=== PATIENT | male | born 1945 | race Caucasian/White ===

== ENCOUNTER → 2018-08-12 07:01 | Outpatient (CLI) | payer OTHER, SELFPAY ==
[2018-08-12 10:36] LABS: Vitamin D,25 Hydroxy 43.2 ng/mL (29.95-100.01)
[2018-08-12 10:39] LABS: AST(SGOT) 24 U/L (15-37); Alanine Aminotransfer ALT/SGPT 37 U/L (16-61); Albumin, Serum 3.6 g/dL (3.2-5.0); Alkaline Phosphatase 79 U/L (45-117); Bilirubin, Direct 0.19 mg/dL (0.00-0.30); Cholesterol 123 mg/dL (200); Globulin 3.3 g/dL (2.2-4.2); High Density Lipoprotein 38 mg/dL; Protein, Total 6.9 g/dL (6.4-8.2); Thyroid Stim Hormone (TSH) 4.09 uIU/mL (0.358-3.74); Triglycerides 117 mg/dL; Very Low Density Lipoprotein 23 mg/dL (5-40)
== END ==
PROVIDERS: Family Provider Family Medicine; PCP Family Medicine; Referring Provider Family Medicine; Visit Provider Family Medicine
DX: E55.9 Vitamin D deficiency, unspecified (principal); E03.9 Hypothyroidism, unspecified; E78.5 Hyperlipidemia, unspecified; I10 Essential (primary) hypertension
CPT/HCPCS: 36415; 80061; 80076; 82306; 84443

== ENCOUNTER → 2019-02-09 | Outpatient (CLI) | payer OTHER, SELFPAY ==
[2019-02-09 10:39] LABS: AST(SGOT) 31 U/L (15-37); Alanine Aminotransfer ALT/SGPT 35 U/L (16-61); Albumin, Serum 3.6 g/dL (3.2-5.0); Alkaline Phosphatase 72 U/L (45-117); Bilirubin, Direct 0.15 mg/dL (0.00-0.30); Cholesterol 131 mg/dL (200); High Density Lipoprotein 42 mg/dL; Protein, Total 6.6 g/dL (6.4-8.2); Thyroid Stim Hormone (TSH) 1.28 uIU/mL (0.358-3.74); Triglycerides 98 mg/dL; Very Low Density Lipoprotein 20 mg/dL (5-40)
[2019-02-09 14:16] LABS: Vitamin D,25 Hydroxy 32.1 ng/mL (29.95-100.01)
== END | disposition home or self-care (01) ==
LOC: MTLAB 07:35
PROVIDERS: Family Provider Family Medicine; PCP Family Medicine; Referring Provider Family Medicine; Visit Provider Family Medicine
DX: E55.9 Vitamin D deficiency, unspecified (principal); E03.9 Hypothyroidism, unspecified; E78.5 Hyperlipidemia, unspecified; I10 Essential (primary) hypertension
CPT/HCPCS: 36415; 80061; 80076; 82306; 84443

== ENCOUNTER → 2020-04-18 07:02 | Outpatient (CLI) | payer OTHER, SELFPAY ==
[2020-04-18 10:16] LABS: Vitamin D,25 Hydroxy 53.4 ng/mL
[2020-04-18 10:25] LABS: ALB/GLOB Ratio 1.2 RATIO (0.9-2.4); AST(SGOT) 30 U/L (15-37); Alanine Aminotransfer ALT/SGPT 40 U/L (16-61); Albumin, Serum 3.7 g/dL (3.2-5.0); Alkaline Phosphatase 79 U/L (45-117); Anion Gap 3 (5-15); BUN 19 mg/dL (7-18); BUN/Creat Ratio 22.6 RATIO (10-20); Calcium,Total 8.2 mg/dL (8.5-10.1); Chloride 108 mmol/L (98-107); Cholesterol 139 mg/dL (200); Creatinine, Serum 0.84 mg/dL (0.70-1.30); EST Glomerular Filtration Rate 95 mL/min (>60); Est Glom Filt Rate - Afr Amer 115 mL/min (>60); Globulin 3.2 g/dL (2.2-4.2); Glucose 89 mg/dL (74-106); High Density Lipoprotein 47 mg/dL; PSA,Total - Annual Screen 1.94 ng/mL (0.00-4.00); Potassium 4.2 mmol/L (3.5-5.1); Protein, Total 6.9 g/dL (6.4-8.2); Sodium Level 140 mmol/L (136-145); Thyroid Stim Hormone (TSH) 2.05 uIU/mL (0.358-3.74); Triglycerides 77 mg/dL; Very Low Density Lipoprotein 15 mg/dL (5-40)
== END ==
PROVIDERS: PCP Family Medicine; Referring Provider Family Medicine; Visit Provider Family Medicine
DX: E78.5 Hyperlipidemia, unspecified (principal); I10 Essential (primary) hypertension; E55.9 Vitamin D deficiency, unspecified; E03.9 Hypothyroidism, unspecified; Z12.5 Encounter for screening for malignant neoplasm of prostate
CPT/HCPCS: 36415; 80053; 80061; 82306; 84153; 84443; G0103

== ENCOUNTER 2020-08-22 09:30 | Outpatient (RCR) | payer OTHER, SELFPAY ==
--- NOTE | 2020-08-08 11:06 | HP.PTEVAL_ITS ---
Patient's Visit Information CASSIUS PARTIDA is a 75 year old M referred to Physical Therapy by Dr. Owen Guy MD with a diagnosis of Right Hip Pain. Date of Evaluation: 08/08/20 Physical Therapist: Cyn Kim DPT - Visit Plan Frequency: 2x /Week Duration: 4 Weeks Plan: Ultrasound and Dry needling with possible addition of core s/s exercises - Subjective Right hip pain- started this summer when he stepped out of his truck- he had a cortisone injection about 4-6 weeks ago and it helped but the effects are gone at this point. He has been doing PT 2-3 months at [facility] and he is now doing a home exercise program. He has good days and bad days. He continues his normal routine so nothing changes the pain. Pain is located along the lateral aspect of the hip and radiates to the ankle with pain in the adductors and into the groin. Has had x-rays on his hip which showed a bone spur- he had back surgery 12-14 years ago fusion due to spinal stenosis- Dr. Sun out of [place] at [facility]. Has not had any falls but does feel like the leg will give out on him. He can only do about 3 steps then he has to do them one at a time. Describes the pain as contantly dull and achy with a certain step its gives a sharp/shooting hard pain and it takes 3 days before he can get his leg back under him. Agg: twisting, walking distances with inclines/declines Worst: 9/10 Eases: Aleve and Tylenol Eases: laying down on his back with his legs elevated Best: 10. PMHx: thyroid, HTN Meds: lysinopril, alloperinol, simvistatin, levothyroxin, Asprin - Objective Posture: FH, RS, increased kyphosis- can correct but does not maintain. Gait: antalgic and slow pilar- decreased stance on right LE. HR/TR: able. SLS: weight shift but unable to SLS. ROM: Hip Flexion: 90 degrees, Abd: 50 degrees, IR/ER;neutral, Knee: WFL. Strength: Ankle: 5/5, Knee: 4+/5, Hip: 4-/5 Core: fair minus. Palpatoin: tender along greater troch. Special Test: DARRICK: positive, Scour: positive - Goals Goal 1:: Patient will be I with HEP and progression Goal Time Frame: 4-6 Weeks Goal 2:: Patient will ambulate >300 feet with a normalized gait pattern Goal Time Frame: 4-6 Weeks Goal 3:: Patient will report on pain for 1 week Goal Time Frame: 4-6 Weeks - Rehabilitation Potential Physical Therapy Diagnosis: Patient presents with hypomobility- he has decreased painfree ROM, strength, flex and muscular endurance leading to abnormal gait and increased pain with ADL's. Rehabilitation Potential: Fair - Anticipated Interventions Patient/Client Instruction: Educate patient on: Benefits of Fitness Program Therapeutic Exercise to Include: Strength training, Endurance training, Balance training, Coordination, Agility training, Body mechanics, Postural training, Flexibilty training, Gait and locomotor training, Neuromotor development, Passive ROM, Active ROM, Dynamic Lumbar Stabilization, Scapular Strength/Stabilization For the Purpose of:: To improve muscle performance and motor function Manual Therapy Techniques to Include: Functional dry needling, Soft tissue mobil ization TENS: Yes Cryotherapy (ice pack, ice massage): Yes Thermo therapy (hot pack): Yes Ultrasound (thermal/non thermal): Yes Thank you for the opportunity to evaluate your patient. For Medicare and Medicare HMO plans, please review the plan of care and approve it. It will need to be FAXED BACK to us at [phone] for Medicare purposes. For Medicare only, by signing this I certify the plan of care. Please let me know if there are questions or concerns regarding this plan of care. Physician Signature: Date:
--- NOTE | 2020-08-22 09:57 | HP.PTDCSUM ---
It has been my pleasure to treat CASSIUS LOPEZ [facility] referred by Dr. Owen Guy MD, with the diagnosis of Right Hip Pain for a total of 5 visit(s). Discharge Date: Please see the following information for a summary of their discharge status. Subjective: Patient reports he is walking better- he feels the ultrasound does the most for it. He tried to walk upstairs and only made 4 steps then he had to stop. The pain is somewhat less. This helps but the problem is not fixed. MD reports that he would give him another cortisone injection. R lateral hip Pain Intensity (Out of 10): 2 % Improvement: 50 Objective/Function: Posture: FH, RS, increased kyphosis- can correct but does not maintain. Gait: antalgic and slow pilar- decreased stance on right LE. HR/TR: able. SLS: weight shift but unable to SLS more than 3 seconds. ROM: Hip Flexion: 90 degrees, Abd: 50 degrees, IR/ER;neutral, Knee: WFL. Strength: Ankle: 5/5, Knee: 4+/5, Hip: 4-/5 Core: fair minus- Significant soreness and tears when testing hip flexion. Palpatoin: tender along greater troch. Special Test: DARRICK: positive, Scour: positive Goal 1:: Patient will be I with HEP and progression Goal Progress: Progressing Goal 2:: Patient will ambulate >300 feet with a normalized gait pattern Goal Progress: Progressing Goal 3:: Patient will report on pain for 1 week Goal Progress: Progressing Plan: Discharge to indep home exercise program and return to MD for further evaluation If there are questions or concerns regarding this patient's physical therapy, please feel free to call me at [phone]. Thank you for the referral of this patient. Sincerely, Cyn Kim DPT
== END 2020-08-22 10:12 | disposition home or self-care (01) ==
LOC: PT 09:30
PROVIDERS: PCP Family Medicine; Referring Provider Orthopaedic Surgery; Visit Provider Orthopaedic Surgery
DX: M70.61 Trochanteric bursitis, right hip (principal)
CPT/HCPCS: 97035; 97110; 97161; 97164

== ENCOUNTER → 2020-10-08 07:08 | Outpatient (CLI) | payer OTHER, SELFPAY ==
[2020-09-02 09:45] VITALS: BMI 22.9
[2020-10-08 09:59] LABS: Hematocrit 46.6 % (40-54); Hemoglobin 15.1 g/dL (13.0-16.5); Mean Corp Hgb Conc 32.4 g/dL (32-36); Mean Corpuscular Hgb 33.6 pg (27.0-32.0); Mean Corpuscular Volume 103.8 fL (80-94); Mean Platelet Vol. 10.3 fl (6.2-12.0); Platelet Count 307 K/mm3 (150-450); RBC Distribution Width CV 11.9 % (11.6-14.6); RBC Distribution Width SD 45.4 fl (35.1-43.9); Red Blood Count 4.49 M/mm3 (4.6-6.2)
[2020-10-08 10:13] LABS: Vitamin D,25 Hydroxy 38.7 ng/mL
[2020-10-08 10:19] LABS: ALB/GLOB Ratio 1.2 RATIO (0.9-2.4); AST(SGOT) 20 U/L (15-37); Alanine Aminotransfer ALT/SGPT 34 U/L (16-61); Albumin, Serum 3.8 g/dL (3.2-5.0); Alkaline Phosphatase 83 U/L (45-117); Anion Gap 5 (5-15); BUN 15 mg/dL (7-18); BUN/Creat Ratio 17.5 RATIO (10-20); Calcium,Total 8.7 mg/dL (8.5-10.1); Chloride 105 mmol/L (98-107); Cholesterol 165 mg/dL (200); Creatinine, Serum 0.86 mg/dL (0.70-1.30); EST Glomerular Filtration Rate 93 mL/min (>60); Est Glom Filt Rate - Afr Amer 112 mL/min (>60); Globulin 3.2 g/dL (2.2-4.2); Glucose 81 mg/dL (74-106); High Density Lipoprotein 50 mg/dL; Potassium 3.7 mmol/L (3.5-5.1); Sodium Level 140 mmol/L (136-145); Thyroid Stim Hormone (TSH) 3.25 uIU/mL (0.358-3.74); Triglycerides 111 mg/dL; Very Low Density Lipoprotein 22 mg/dL (5-40)
== END ==
PROVIDERS: PCP Family Medicine; Referring Provider Family Medicine; Visit Provider Family Medicine
DX: Z00.00 Encounter for general adult medical examination without abnormal findings (principal); E78.5 Hyperlipidemia, unspecified; I10 Essential (primary) hypertension; E03.9 Hypothyroidism, unspecified; E55.9 Vitamin D deficiency, unspecified; Z12.5 Encounter for screening for malignant neoplasm of prostate
CPT/HCPCS: 36415; 80053; 80061; 82306; 84443; 85027

== ENCOUNTER 2021-11-06 07:08 | Outpatient (CLI) | payer OTHER, SELFPAY ==
[2021-11-06 10:21] LABS: Vitamin D,25 Hydroxy 42.8 ng/mL
[2021-11-06 11:04] LABS: ALB/GLOB Ratio 1.1 RATIO (0.9-2.4); AST(SGOT) 29 U/L (15-37); Alanine Aminotransfer ALT/SGPT 39 U/L (16-61); Albumin, Serum 3.9 g/dL (3.2-5.0); Alkaline Phosphatase 91 U/L (45-117); Anion Gap 7 (5-15); BUN 17 mg/dL (7-18); BUN/Creat Ratio 16.3 RATIO (10-20); Calcium,Total 8.7 mg/dL (8.5-10.1); Chloride 104 mmol/L (98-107); Cholesterol 136 mg/dL (200); Creatinine, Serum 1.04 mg/dL (0.70-1.30); EST Glomerular Filtration Rate 74 mL/min (>60); Est Glom Filt Rate - Afr Amer 90 mL/min (>60); Globulin 3.4 g/dL (2.2-4.2); Glucose 76 mg/dL (74-106); High Density Lipoprotein 45 mg/dL; PSA,Total - Annual Screen 2.77 ng/mL (0.00-4.00); Potassium 3.9 mmol/L (3.5-5.1); Protein, Total 7.3 g/dL (6.4-8.2); Sodium Level 136 mmol/L (136-145); Thyroid Stim Hormone (TSH) 0.96 uIU/mL (0.358-3.74); Triglycerides 64 mg/dL; Uric Acid 3.8 mg/dL (3.5-7.2); Very Low Density Lipoprotein 13 mg/dL (5-40)
== END 2021-11-06 23:59 | disposition short-term general hospital (02) ==
PROVIDERS: PCP Family Medicine; Referring Provider Family Medicine; Visit Provider Family Medicine
DX: Z00.00 Encounter for general adult medical examination without abnormal findings (principal); Z12.5 Encounter for screening for malignant neoplasm of prostate; I10 Essential (primary) hypertension; E03.9 Hypothyroidism, unspecified; E78.5 Hyperlipidemia, unspecified; E55.9 Vitamin D deficiency, unspecified; M10.9 Gout, unspecified
CPT/HCPCS: 36415; 80053; 80061; 82306; 84153; 84443; 84550; G0103

== ENCOUNTER 2021-12-12 22:38 | Observation (INO) | payer OTHER, SELFPAY ==
[2021-12-12 22:39] VITALS: PULSE 15; RESP 15; TEMP 36.2; O2SAT 100; BMI 24.5
[2021-12-12 22:43] VITALS: BP 149/83
--- NOTE | 2021-12-12 23:02 | EKG12_ITS ---
Test Reason : DYSRHYTHMIA Blood Pressure : / mmHG Vent. Rate : 068 BPM Atrial Rate : 068 BPM P-R Int : 188 ms QRS Dur : 088 ms QT Int : 412 ms P-R-T Axes : 049 060 053 degrees QTc Int : 438 ms Normal sinus rhythm Nonspecific ST abnormality Abnormal ECG Confirmed by ROSALIE BURLESON, JAIRON ([id number]), editorial manager ASHLEY BENNETT ([id number]) on 12/15/2021 10:59:09 AM Referred By: BB Confirmed By:JAIRON WIGGINS MD
--- NOTE | 2021-12-12 23:06 | EX.ED.DYSGE1 ---
HPI History of Present Illness Chief Complaint: Syncope Informant: patient, spouse/S.O. and EMS Onset/Context/Timing Onset: Today Narrative Narrative: For the past 3 days or so patient has been having some pain in the right side of his neck that hurts worse with turning his head to the right, better when he massages the muscle and when he remains still, so he went to get a heating pad and before using it, he was walking in his bathroom and suddenly felt a little funny, he thinks maybe lightheaded, and the next thing he remembers he was waking up from on the floor with his over him. She also to the bed. He laid down, sleeping some, for about the next 5 hours or so. She got him up later gradually, they went to the kitchen and sat down and he had a little something to eat and then upon getting up he felt lightheaded and passed out again, he was amnestic to that event as well and woke up on the floor again with his over him. He felt nauseated and sweaty after both of these episodes, worse after the first 1. He states he did not feel dyspnea, but felt like it was hard to take a deep breath at the time. He did not have any chest discomfort. No recent leg pain or swelling. No recent long travel, immobilization, hospitalization, or surgery. No history of DVT or PE. He does have a history of coronary artery disease with a 65% lesion in one of his coronaries the last time he had a heart cath which was 3 years ago. Never had angioplasty or stent placed. He has no reason to be dehydrated today. He does not drink a lot of fluids, but he had typical amount for him which is maybe 18-24 ounces of water today. states he is also been taking in protein shakes because of unintentional weight loss even though he is eating. EMS provided an EKG which had a lot of artifact but appeared to be sinus rhythm, they give him some fluids and he was stable. [facility] Medical History (Updated 12/12/21 @ 23:[address] Obed Guerra MD) Arthritis CAD (coronary artery disease) Cervical spinal stenosis Gout Hemorrhoids Hyperlipidemia Hypertension Hypothyroid Home Medications allopurinol 300 mg tablet 300 mg PO DAILY tab 09/02/20 [History Last Taken Unknown] aspirin 81 mg tablet,delayed release 81 mg PO DAILY 09/02/20 [History Last Taken Unknown] levothyroxine 112 mcg tablet 112 mcg PO DAILY tab 09/02/20 [History Last Taken Unknown] lisinopril 20 mg tablet 20 mg PO DAILY tab 09/02/20 [History Last Taken Unknown] multivitamin 1 tab PO DAILY 09/02/20 [History Last Taken Unknown] omega-3 fatty acids 1,000 mg capsule 1,000 mg PO DAILY 09/02/20 [History Last Taken Unknown] simvastatin 40 mg tablet 40 mg PO DAILY 09/02/20 [History Last Taken Unknown] vitamin B complex 1 tab PO DAILY 09/02/20 [History Last Taken Unknown] vitamin E 200 unit capsule 200 unit PO DAILY 09/02/20 [History Last Taken Unknown] citalopram 20 mg PO DAILY 12/12/21 [History Last Taken Unknown] sildenafil [Viagra] 100 mg PO DAILY PRN 12/12/21 [History Last Taken Unknown] Allergy/AdvReac Type Severity Reaction Status Date / Time cyclobenzaprine Allergy Low blood Verified 12/12/21 22:42 pressure amoxicillin AdvReac Diarrhea Verified 12/12/21 22:42 Family History Mother Heart disease Hypertension Father Alzheimer disease Surgical History History of back surgery Hx of colonoscopy Hx of subdural hematoma Hx of tonsillectomy Social History Smoking Status: Never smoker second hand exposure: No alcohol intake: current alcohol intake frequency: a few times a month Alcohol type: beer substance use type: does not use caffeine: Yes what type of physical activity do you participate in: walking, bicycling and aerobics frequency: 3-4 times per week ROS ROS ED Constitutional Constitutional ED: Denies chills or fever(s) Eyes Eyes: Denies change in vision or diplopia ENT ENT ED: Denies rhinorrhea or sore throat Cardiovascular Cardiovascular: Denies chest pain or palpitations Respiratory/Chest Respiratory/Chest: Denies cough or dyspnea Gastrointestinal Gastrointestinal: Reports nausea; Denies abdominal pain, diarrhea or vomiting Genitourinary Genitourinary ED: Denies dysuria or hematuria Musculoskeletal Musculoskeletal: Denies back pain or neck pain Integumentary Denies abscess or rash Neurologic Neurologic: Denies headache(s), paresthesias or weakness Psychiatric Psychiatric: Denies anxiety or suicidal thoughts EXAM Physical Exam Const Vital Signs: 12/12/21 22:39 12/12/21 22:43 12/12/21 23:07 Temperature 97.1 F L Temperature Source Temporal Pulse Rate 15 L Respiratory Rate 15 Blood Pressure 149/83 H Blood Pressure Mean 105 Pulse Ox 100 Oxygen Delivery Method Room Air Room Air 12/12/21 23:39 Temperature Temperature Source Pulse Rate 61 Respiratory Rate 21 H Blood Pressure 128/71 H Blood Pressure Mean 90 Pulse Ox 100 Oxygen Delivery Method Room Air Positive well nourished and well developed General Appearance ED: well developed and NAD HEENT Reports moist mucous membranes normocephalic and atraumatic Eyes PERRL and EOMs intact bilaterally Neck full ROM and supple Resp normal respiratory effort and clear to auscultation bilaterally Cardio regular rate, regular rhythm, no murmurs and no JVD Cardio Narrative: Faint heart sounds GI non-tender and non-distended Auscultation: normoactive bowel sounds Palpation: soft; Negative for pulsatile mass Back/Spine no CVA tenderness General Back: other FROM Extremity normal to inspection and no calf tenderness General Extremety ED: Negative for edema, pulses abnormal or tenderness General Extremity: Negative for edema or pulses abnormal Neuro oriented x3, CN's II-XII intact bilaterally and no sensory deficits noted Sensorium / Orientation: awake and alert Motor Exam: strength 5/5 throughout Skin no rashes or lesions noted and no wounds MDM MDM MDM Narrative Medical decision making narrative: His EKG does show some very mild ST depressions in the septal lateral precordial leads. No ST elevation or STEMI, and no dysrhythmias seen on his EKG or on the monitor during his ED observation period. The rest of the work-up is negative including chest x-ray, labs. His D-dimer is technically elevated at 0.60 but when corrected for his age is within normal limits to rule out acute pulmonary embolus to cause these events tonight. Given his age and history of CAD, I think inpatient observation on telemetry is warranted. Lab Data Attestation: I reviewed the patient's lab results. Labs: Laboratory Results - last 24 hr 12/12/21 12/12/21 12/12/21 22:17 22:17 22:17 WBC 9.9 RBC 4.01 L Hgb 13.9 Hct 40.1 MCV 100.0 H MCH 34.7 H MCHC 34.7 RDW Std Deviation 43.0 RDW Coeff of Lexy 11.7 Plt Count 271 MPV 10.4 Immature Gran % (Auto) 0.600 Neut % (Auto) 68.3 Lymph % (Auto) 19.7 [place] % (Auto) 10.6 H Eos % (Auto) 0.4 Baso % (Auto) 0.4 Absolute Neuts (auto) 6.8 Absolute Lymphs (auto) 1.96 Nucleated RBC % 0 D-Dimer Quant (PE/DVT) 0.62 H* Sodium 136 Potassium 3.7 Chloride 106 Carbon Dioxide 26.0 Anion Gap 4 L BUN 17 Creatinine 0.92 Estim Creat Clear Calc 78.40 Est GFR (MDRD) Af Amer 104 Est GFR (MDRD) Non-Af 86 BUN/Creatinine Ratio 18.6 Glucose 140 H Calcium 9.4 Troponin I High Sens 8 Radiography Diagnostic Testing: Clinical Impression(s) from Imaging Studies Chest X-Ray 12/12/21 23:12 IMPRESSION: No pneumonia or other acute disease. Electronically Signed: Armando Bennett MD at 23:35 EST , EKG Initial EKG: Attestation: I personally reviewed and interpreted this EKG as follows: Interpretation: Sinus Rhythm, No Acute Injury Pattern and S-T Depression (Less than 1 mm in septolateral leads. No ST elevation.) Discharge Plan Dx/Rx/DC Orders Clinical Impression: Syncope, Acute electrocardiogram changes Disposition Disposition: Acute Care Hospital [facility]
--- NOTE | 2021-12-12 23:12 | RAD_ITS ---
EXAM: XR CHEST, 1 VIEW CLINICAL INDICATION: sob TECHNIQUE: Frontal view of the chest. This report was created using [employer] report generation technology. COMPARISON: None. FINDINGS: LUNGS AND PLEURAL SPACES: Unremarkable. No consolidation or edema. No pneumothorax. No effusion. HEART: Unremarkable. Cardiac silhouette not enlarged. MEDIASTINUM: Central airways and mediastinal contour are unremarkable. BONES/JOINTS: Degenerative changes of the acromioclavicular joints. Degenerative changes the glenohumeral joints. SOFT TISSUES: Unremarkable. VASCULATURE: Atherosclerotic calcifications of the nonenlarged thoracic aortic arch. RAD/Chest 1 View (Portable) IMPRESSION: No pneumonia or other acute disease. Electronically Signed: Armando Bennett MD at 23:35 EST ,
[2021-12-12] MEDS: Aspirin 81 MG TAB.CHEW 162 MG PO (23:19)
[2021-12-12] MEDS: 0.9% Normal Saline 1,000 ML 100 ML IV (23:19)
[2021-12-12 23:20] LABS: Absolute Lymphocyte Count 1.96 X10^3/uL (0.83-4.51); Absolute Neutrophil Count 6.8 X10^3/uL (2.0-7.7); Basophil# 0.04 X10^3/uL; Basophil% 0.4 % (0-1); Eosinophil# 0.04 X10^3/uL; Eosinophils% 0.4 % (0-5); Hematocrit 40.1 % (40-54); Hemoglobin 13.9 g/dL (13.0-16.5); Lymphocyte # 1.96 X10^3/ul (0.83-4.51); Lymphocyte % 19.7 % (19-41); Mean Corp Hgb Conc 34.7 g/dL (32-36); Mean Corpuscular Hgb 34.7 pg (27.0-32.0); Mean Platelet Vol. 10.4 fl (6.2-12.0); Monocyte# 1.05 X10^3/uL; Monocyte% 10.6 % (0-10); NRBC Flagged by Analyzer 0 % (0-5); Neutrophil # 6.79 X10^3/uL (2.7-7.7); Neutrophil % 68.3 % (47-70); Platelet Count 271 K/mm3 (150-450); RBC Distribution Width CV 11.7 % (11.6-14.6); Red Blood Count 4.01 M/mm3 (4.6-6.2); White Blood Count 9.9 K/mm3 (4.4-11.0)
[2021-12-12 23:38] LABS: Anion Gap 4 (5-15); BUN 17 mg/dL (7-18); BUN/Creat Ratio 18.6 RATIO (10-20); Calcium,Total 9.4 mg/dL (8.5-10.1); Chloride 106 mmol/L (98-107); Creatinine, Serum 0.92 mg/dL (0.70-1.30); D-Dimer Quantitative (DVT/PE) 0.62 FEU/ug/m (0.27-0.49); EST Glomerular Filtration Rate 86 mL/min (>60); Est Glom Filt Rate - Afr Amer 104 mL/min (>60); Glucose 140 mg/dL (74-106); Potassium 3.7 mmol/L (3.5-5.1); Sodium Level 136 mmol/L (136-145); Troponin-I HS 8 pg/mL (3.0-78.0)
[2021-12-12 23:39] VITALS: BP 128/71; PULSE 61; RESP 21; O2SAT 100
[2021-12-13] VITALS (11 sets, daily range): BP systolic 119–138; BP diastolic 61–75; PULSE 56–72; RESP 14–17; TEMP 36.6–37.2; O2SAT 97–100; BMI 22.4
[2021-12-13 00:52] LABS: Troponin-I HS 8 pg/mL (3.0-78.0)
--- NOTE | 2021-12-13 01:08 | HP.PCM.HOS_ITS ---
[facility] - General General Date of Admission: 12/13/21 HPI Narrative CASSIUS PARTIDA, is a 76 M who presents to the hospital with 2 separate episodes of syncope. He said the first 1 occurred when he was on his way to the bathroom, he had been searching for a heating pad because he has had his neck hurting for several days because he thinks he slept on it funny and he was getting dizzy and passed out. His was working from home at the time and heard the thud and arrived within several seconds of the fall and he started coming to, she did not notice any seizure-like activity. Immediately after he woke up he had to go to the bathroom and had a bowel movement he felt diaphoretic and hot at that time. He he then laid down and started feeling chilled and needed several brown blankets to warm up. He fell asleep for a little bit and then woke up and thought about having something to eat so his walked him to the kitchen to grab fruit cup and he ate and then when he was going to get up to go sit on the couch, his was helping him and he passed out again dizzy. At that time she did not notice any seizure-like activity either. He denies any palpitations or chest pain. Denies any recent illness. In the ER work-up is unremarkable, lab work is normal renal function is normal. His D-dimer is 0.62 which is normal for his age and his troponin was unremarkable and EKG was nonischemic. [facility] Medical History (Updated 12/12/21 @ 23:[address] Obed Guerra MD) Arthritis CAD (coronary artery disease) Cervical spinal stenosis Gout Hemorrhoids Hyperlipidemia Hypertension Hypothyroid Home Medications allopurinol 300 mg tablet 300 mg PO DAILY tab 09/02/20 [History Last Taken Unknown] aspirin 81 mg tablet,delayed release 81 mg PO DAILY 09/02/20 [History Last Taken Unknown] levothyroxine 112 mcg tablet 112 mcg PO DAILY tab 09/02/20 [History Last Taken Unknown] lisinopril 20 mg tablet 20 mg PO DAILY tab 09/02/20 [History Last Taken Unknown] multivitamin 1 tab PO DAILY 09/02/20 [History Last Taken Unknown] omega-3 fatty acids 1,000 mg capsule 1,000 mg PO DAILY 09/02/20 [History Last Taken Unknown] simvastatin 40 mg tablet 40 mg PO DAILY 09/02/20 [History Last Taken Unknown] vitamin B complex 1 tab PO DAILY 09/02/20 [History Last Taken Unknown] vitamin E 200 unit capsule 200 unit PO DAILY 09/02/20 [History Last Taken Unknown] citalopram 20 mg PO DAILY 12/12/21 [History Last Taken Unknown] sildenafil [Viagra] 100 mg PO DAILY PRN 12/12/21 [History Last Taken Unknown] Allergy/AdvReac Type Severity Reaction Status Date / Time cyclobenzaprine Allergy Low blood Verified 12/12/21 22:42 pressure amoxicillin AdvReac Diarrhea Verified 12/12/21 22:42 Family History Mother Heart disease Hypertension Father Alzheimer disease Surgical History History of back surgery Hx of colonoscopy Hx of subdural hematoma Hx of tonsillectomy Social History Smoking Status: Never smoker second hand exposure: No alcohol intake: current alcohol intake frequency: a few times a month Alcohol type: beer substance use type: does not use caffeine: Yes what type of physical activity do you participate in: walking, bicycling and aerobics frequency: 3-4 times per week ROS Constitutional Constitutional: Denies chills, fatigue, fever(s) or malaise Eyes Eyes: Denies blurry vision ENT HEENT: Denies headache(s) or nasal discharge Cardiovascular Cardiovascular: Reports dizziness and syncope; Denies chest pain or dyspnea on exertion Respiratory/Chest Respiratory/Chest: Denies cough, shortness of breath at rest or shortness of breath with exertion Gastrointestinal Gastrointestinal: Denies constipation, diarrhea, nausea or vomiting Genitourinary Genitourinary: Denies dysuria Neurologic Neurologic: Denies focal weakness, numbness or tremor(s) Psychiatric Psychiatric: Denies anxiety or depression Vital Signs Vital Signs Vital Signs: 12/12/21 22:39 12/12/21 22:43 12/12/21 23:07 Temperature 97.1 F L Temperature Source Temporal Pulse Rate 15 L Respiratory Rate 15 Blood Pressure 149/83 H Blood Pressure Mean 105 Pulse Ox 100 Oxygen Delivery Method Room Air Room Air 12/12/21 23:39 Temperature Temperature Source Pulse Rate 61 Respiratory Rate 21 H Blood Pressure 128/71 H Blood Pressure Mean 90 Pulse Ox 100 Oxygen Delivery Method Room Air Weight Weight: 186 lb 4.65 oz Body Mass Index (BMI) 24.5 Physical Exam Const alert, oriented x3 and no apparent distress General Appearance: cooperative HEENT normocephalic and moist oral mucous membranes Eyes PERRL, EOMs intact bilaterally and conjunctivae normal Neck supple and no JVD Resp normal respiratory effort, no retractions, no use of accessory muscles and clear to auscultation bilaterally Auscultation: Negative for crackles, rales, rhonchi or wheezes Cardio regular rate, regular rhythm, S1 normal heart sound, S2 normal heart sound and no murmurs GI soft to palpation, non-tender and non-distended; Negative for hepatosplenomegaly Extremity no clubbing, cyanosis or edema Skin no rashes or lesions noted Neuro no focal motor deficits and no sensory deficits noted Psych affect normal Appearance: appropriate Results Lab / Micro Data Result Diagrams: 12/12/21 22:17 12/12/21 22:17 Labs: Laboratory Results - last 24 hr 12/12/21 22:17: WBC 9.9, RBC 4.01 L, Hgb 13.9, Hct 40.1, MCV 100.0 H, MCH 34.7 H , MCHC 34.7, RDW Std Deviation 43.0, RDW Coeff of Lexy 11.7, Plt Count 271, MPV 10.4, Immature Gran % (Auto) 0.600, Neut % (Auto) 68.3, Lymph % (Auto) 19.7, [place] % (Auto) 10.6 H, Eos % (Auto) 0.4, Baso % (Auto) 0.4, Absolute Neuts (auto) 6.8, Absolute Lymphs (auto) 1.96, Nucleated RBC % 0 12/12/21 22:17: D-Dimer Quant (PE/DVT) 0.62 H* 12/12/21 22:17: Sodium 136, Potassium 3.7, Chloride 106, Carbon Dioxide 26.0, Anion Gap 4 L, BUN 17, Creatinine 0.92, Estim Creat Clear Calc 78.40, Est GFR (MDRD) Af Amer 104, Est GFR (MDRD) Non-Af 86, BUN/Creatinine Ratio 18.6, Glucose 140 H, Calcium 9.4, Troponin I High Sens 8 12/13/21 00:20: Troponin I High Sens 8 Radiology Impression Chest X-Ray 12/12/21 23:12 IMPRESSION: No pneumonia or other acute disease. Electronically Signed: Armando Bennett MD at 23:35 EST Reading Location ID and State: [id number] Tel , Service support , Assessment & Plan Assessment/Plan (1) Syncope: PLAN: 1. Syncope/HTN/HLD/CAD ?This does not appear to be associated with any seizure-like activity, denies any chest pain or palpitations and telemetry has been normal so far plan ?we will obtain an echo and continue on telemetry monitoring ?Continue with IV fluid ?We will continue with his home blood pressure medication ?Obtain orthostatic vital signs in the morning, this is likely vasovagal 2. Hypothyroidism ?Stable ?Continue with Synthroid 3. Anxiety/depression ?Stable ?Continue citalopram DVT: Ambulation Charges/Coding Visit Charges OBSV E&M: 09662 Initial observation care L2
--- NOTE | 2021-12-13 01:21 | ECHOD_ITS ---
Reason For Study: Syncope/Near Syncope Procedure This was a 2D Doppler, Color Flow transthoracic echocardiogram. Exam performed portable in patient room. Left Ventricle Normal LV size. Left ventricular systolic function is normal. The estimated ejection fraction is 55 %. Normal diastology for age. No regional wall motion abnormalities noted. Right Ventricle Normal RV size. Normal systolic function. Atria Normal left atrium. Normal right atrium. Mitral Valve Normal mitral valve. Tricuspid Valve Normal tricuspid valve. Mild tricuspid valve insufficiency. Pulmonary artery systolic pressure is 33 mmHg. Aortic Valve Normal aortic valve. Trisinus/trileaflet aortic valve. Pulmonic Valve Normal pulmonic valve. Great Vessels Normal aortic root. The pulmonary artery is normal size. Normal inferior vena cava. Pericardium/Pleural No pericardial effusion. MMode/2D Measurements & Calculations LVIDd: 4.9 cm IVSd: 0.81 cm Ao root diam: 3.4 cm LVIDs: 2.7 cm LVPWd: 0.90 cm RVDd: 4.4 cm FS: 44.1 % LAV(MOD-bp): 45.3 ml LVAd ap4: 25.5 cm2 SV(MOD-sp4): 43.1 ml LAV(MOD-bp) Indexed: 21.7 ml/m2 LVLd ap4: 7.6 cm LAV(MOD-sp2): 50.2 ml EDV(MOD-sp4): 69.8 ml LAV(MOD-sp4): 36.4 ml EDV(sp4-el): 72.2 ml LVAs ap4: 14.0 cm2 LVLs ap4: 6.6 cm ESV(MOD-sp4): 26.7 ml ESV(sp4-el): 25.2 ml EF(MOD-sp4): 61.8 % EF(sp4-el): 65.1 % SV(sp4-el): 47.0 ml LA A4 area: 15.2 cm2 LA dimension(2D): 4.0 cm RA A4 area: 19.2 cm2 Doppler Measurements & Calculations MV E max margarito: 72.1 cm/sec Lat Peak E' Margarito: 14.3 cm/sec Med Peak E' Margarito: 9.0 cm/sec MV A max margarito: 58.1 cm/sec E/E' lat: 5.0 E/E' med: 8.0 MV E/A: 1.2 Ao V2 max: 122.9 cm/sec LV V1 max: 111.4 cm/sec PA V2 max: 76.0 cm/sec Ao max P.0 mmHg LV V1 max P.0 mmHg Ao V2 mean: 86.0 cm/sec Ao mean P.3 mmHg Ao V2 VTI: 26.6 cm TR max margarito: 266.4 cm/sec TR max P.4 mmHg ECHO/Echo Complete Interpretation Summary Normal LV size. Left ventricular systolic function is normal. The estimated ejection fraction is 55 %. Normal diastology for age. Pulmonary artery systolic pressure is 33 mmHg. Structurally normal valves. Ordering Physician: George Sanchez Referring Physician: Clovis Esteban Performed By: Tiara Ortiz, SHERI, RVT
[2021-12-13] MEDS: 0.9% Normal Saline 1,000 ML 100 ML IV ×2 (01:25→08:08)
[2021-12-13] MEDS: Levothyroxine 112 MCG Tablet PO (06:02)
[2021-12-13 06:43] LABS: Absolute Lymphocyte Count 1.21 X10^3/uL (0.83-4.51); Absolute Neutrophil Count 4.9 X10^3/uL (2.0-7.7); Basophil# 0.03 X10^3/uL; Basophil% 0.4 % (0-1); Eosinophil# 0.05 X10^3/uL; Eosinophils% 0.7 % (0-5); Hematocrit 37.2 % (40-54); Hemoglobin 12.8 g/dL (13.0-16.5); Lymphocyte # 1.21 X10^3/ul (0.83-4.51); Mean Corp Hgb Conc 34.4 g/dL (32-36); Mean Corpuscular Hgb 34.5 pg (27.0-32.0); Mean Corpuscular Volume 100.3 fL (80-94); Mean Platelet Vol. 9.8 fl (6.2-12.0); Monocyte# 0.91 X10^3/uL; Monocyte% 12.8 % (0-10); NRBC Flagged by Analyzer 0 % (0-5); Neutrophil # 4.89 X10^3/uL (2.7-7.7); Neutrophil % 68.8 % (47-70); Platelet Count 238 K/mm3 (150-450); RBC Distribution Width CV 11.8 % (11.6-14.6); RBC Distribution Width SD 44.2 fl (35.1-43.9); Red Blood Count 3.71 M/mm3 (4.6-6.2); White Blood Count 7.1 K/mm3 (4.4-11.0)
[2021-12-13 07:16] LABS: Anion Gap 3 (5-15); BUN 12 mg/dL (7-18); BUN/Creat Ratio 17.5 RATIO (10-20); Calcium,Total 8.4 mg/dL (8.5-10.1); Chloride 108 mmol/L (98-107); Creatinine, Serum 0.69 mg/dL (0.70-1.30); EST Glomerular Filtration Rate 120 mL/min (>60); Est Glom Filt Rate - Afr Amer 145 mL/min (>60); Glucose 112 mg/dL (74-106); Potassium 3.9 mmol/L (3.5-5.1); Sodium Level 139 mmol/L (136-145)
[2021-12-13 07:19] LABS: Troponin-I HS 9 pg/mL (3.0-78.0)
[2021-12-13] MEDS: Lisinopril 20 MG Tablet PO (08:09)
[2021-12-13] MEDS: Allopurinol 300 MG Tablet PO (08:09)
[2021-12-13] MEDS: Aspirin E.C. 81 MG Tablet PO (08:09)
--- NOTE | 2021-12-13 11:51 | CASEMGMT ---
BENNIE ARELLANO in to discuss HERNANDEZ form with patient. RN EILEEN explained HERNANDEZ form, patient voiced understanding. Pt signed form and filed in chart. Pt provided with a copy of signed HERNANDEZ form. Patient at bedside. Discussed pt two recent falls. Pt states this is not due to weakness. Patient denies needs for any needs homegoing at this time. Patient had no further questions or concerns at this time.
--- NOTE | 2021-12-13 16:27 | PCM.DC ---
Discharge Instructions Diet Discharge Diet: No restrictions Activity Discharge Activity: Return to Normal Activity and [address] (with supervision only until you see your doctor) Follow Up Care Test Results: Test results from this visit will be discussed in further detail at your follow-up appointment, if applicable. Discharge Plan Admission Admit Date/Time: 12/13/21 00:34 Primary Reason for Your Visit: Vaso-vegal syncope Attending Provider: Brendan Lopez Primary Care Provider: Clovis Esteban Instructions Additional Instructions / Restrictions: You may want to consider a 30 day Holter monitor for further workup Discharge Orders/Prescriptions Prescriptions: Continued allopurinol 300 mg tablet 300 mg PO DAILY RF: 0 lisinopril 20 mg tablet 20 mg PO DAILY RF: 0 levothyroxine 112 mcg tablet 112 mcg PO DAILY RF: 0 simvastatin 40 mg tablet 40 mg PO DAILY RF: 0 aspirin [Adult Low Dose Aspirin] 81 mg tablet,delayed release (DR/EC) 81 mg PO DAILY RF: 0 omega-3 fatty acids [Fish Oil Concentrate] 1,000 mg capsule 1,000 mg PO DAILY RF: 0 multivitamin Tablet 1 tab PO DAILY RF: 0 vitamin B complex [B Complex-Vitamin B12] Tablet 1 tab PO DAILY RF: 0 vitamin E 200 unit capsule 200 unit PO DAILY RF: 0 sildenafil [Viagra] 100 mg Tablet 100 mg PO DAILY PRN (Reason: Erectile Dysfunction) RF: 0 citalopram 20 mg Tablet 20 mg PO DAILY RF: 0 Referrals / Follow Up: Clovis Esteban MD [Primary Care Provider] - Within 2 Weeks Disposition Disposition (needs filled in before D/C Order can be placed): Home, Self Care
--- NOTE | 2021-12-13 16:31 | PCM.DC.SUM ---
Providers Date of Admission: 12/13/21 Date of Discharge: 12/13/21 Primary Care Physician: Dr. Clovis Esteban MD Reason For Visit: SYNCOPE Diagnosis Discharge Diagnosis (1) Syncope: Status: Acute Code(s): R55 - Syncope and collapse Plan: 1. 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 #4 hyperlipidemia #5 hypothyroidism Medications at Discharge Home Medications allopurinol 300 mg tablet 300 mg PO DAILY tab 09/02/20 aspirin 81 mg tablet,delayed release 81 mg PO DAILY 09/02/20 levothyroxine 112 mcg tablet 112 mcg PO DAILY tab 09/02/20 lisinopril 20 mg tablet 20 mg PO DAILY tab 09/02/20 multivitamin 1 tab PO DAILY 09/02/20 omega-3 fatty acids 1,000 mg capsule 1,000 mg PO DAILY 09/02/20 simvastatin 40 mg tablet 40 mg PO DAILY 09/02/20 vitamin B complex 1 tab PO DAILY 09/02/20 vitamin E 200 unit capsule 200 unit PO DAILY 09/02/20 citalopram 20 mg PO DAILY 12/12/21 sildenafil [Viagra] 100 mg PO DAILY PRN 12/12/21 Hospital Course Operations None Procedures 2-D Echocardiogram Summary of Care Provided Minutes Spent on Discharge: 32 Hospital Course: This 76-year-old white male was seen in the emergency room at [facility] after suffering 2 brief episodes of syncope at home, these episodes were a couple of hours apart, and one episode he stood up and was walking and got very lightheaded and collapsed, he denied any chest pain or shortness of breath, he then went to bed for a time and got up and with his 's help was getting ready to sit down in a chair and the patient stated he passed out for a brief period of time-probably less than a minute. Patient was brought in for evaluation in the emergency room, studies done in the emergency room were unremarkable. Patient was placed in observation status on PCU, he underwent an echocardiogram which was unremarkable. Patient was monitored on telemetry-the telemetry did not show any abnormal arrhythmias. I talked at length with the patient and his , the patient requested discharge to home with follow-up by his PCP. I recommended that the patient consider a 30-day Holter monitor and perhaps a stress test as an outpatient at the discretion of his PCP. On 12/13/2021, patient was seen and examined: On examination he appeared in good health and spirits. Vital signs as documented. Skin warm and dry and without overt rashes. Neck without JVD, neck was supple, trachea midline, thyroid was normal. Lungs clear bilaterally, normal air movement was noted. Heart exam notable for regular rhythm, normal sounds and absence of murmurs, rubs or gallops. Abdomen unremarkable and without evidence of organomegaly, masses, or abdominal aortic enlargement. Bowel sounds are present, abdomen is not distended. Extremities nonedematous, no cyanosis was noted, no clubbing was noted. Neuro: Cranial nerves II through XII are grossly intact, no focal motor deficits were noted, sensation to light touch and pinprick intact, motor exam 5/5 throughout. Psych: Patient is alert and oriented x3, he does not appear anxious or depressed, he does not appear agitated. Patient was discharged home in stable condition on 12/13/2021. Weight / BMI Weight Weight: 77.1 kg Body Mass Index (BMI) 22.4 ABG / Lab / Microbiology Data Result Diagrams: 12/13/21 06:20 12/13/21 06:20 Laboratory: Laboratory Results - last 24 hr 12/12/21 22:17: WBC 9.9, RBC 4.01 L, Hgb 13.9, Hct 40.1, MCV 100.0 H, MCH 34.7 H, MCHC 34.7, RDW Std Deviation 43.0, RDW Coeff of Lex[place] 11.7, Plt Count 271, MPV 10.4, Immature Gran % (Auto) 0.600, Neut % (Auto) 68.3, Lymph % (Auto) 19.7, [place] % (Auto) 10.6 H, Eos % (Auto) 0.4, Baso % (Auto) 0.4, Absolute Neuts (auto) 6.8, Absolute Lymphs (auto) 1.96, Nucleated RBC % 0 12/12/21 22:17: D-Dimer Quant (PE/DVT) 0.62 H* 12/12/21 22:17: Sodium 136, Potassium 3.7, Chloride 106, Carbon Dioxide 26.0, Anion Gap 4 L, BUN 17, Creatinine 0.92, Estim Creat Clear Calc 78.40, Est GFR (MDRD) Af Amer 104, Est GFR (MDRD) Non-Af 86, BUN/Creatinine Ratio 18.6, Glucose 140 H, Calcium 9.4, Troponin I High Sens 8 12/13/21 00:20: Troponin I High Sens 8 12/13/21 06:20: WBC 7.1, RBC 3.71 L, Hgb 12.8 L, Hct 37.2 L, MCV 100.3 H, MCH 34.5 H, MCHC 34.4, RDW Std Deviation 44.2 H, RDW Coeff of [place] 11.8, Plt Count 238, MPV 9.8, Immature Gran % (Auto) 0.300, Neut % (Auto) 68.8, Lymph % (Auto) 17.0 L, [place] % (Auto) 12.8 H, Eos % (Auto) 0.7, Baso % (Auto) 0.4, Absolute Neuts (auto) 4.9, Absolute Lymphs (auto) 1.21, Nucleated RBC % 0 12/13/21 06:20: Sodium 139, Potassium 3.9, Chloride 108 H, Carbon Dioxide 28.0, Anion Gap 3 L, BUN 12, Creatinine 0.69 L, Estim Creat Clear Calc 69.60, Est GFR (MDRD) Af Amer 145, Est GFR (MDRD) Non-Af 120, BUN/Creatinine Ratio 17.5, Glucose 112 H, Calcium 8.4 L 12/13/21 06:20: Troponin I High Sens 9 Radiography Diagnostic Testing: Radiology Impression Chest X-Ray 12/12/21 23:12 IMPRESSION: No pneumonia or other acute disease. Electronically Signed: Armando Bennett MD at 23:35 EST , Echocardiogram 12/13/21 01:21 Interpretation Summary Normal LV size. Left ventricular systolic function is normal. The estimated ejection fraction is 55 %. Normal diastology for age. Pulmonary artery systolic pressure is 33 mmHg. Structurally normal valves. Ordering Physician: George Sanchez Referring Physician: Clovis Esteban Performed By: Tiara Ortiz RDCS, RVT D/C Instructions Discharge Diet: No restrictions Meaningful Use Info Meaningful Use Diagnoses (Choose all that apply): None applicable Discharge Plan Admission Admit Date/Time: 12/13/21 00:34 Primary Reason for Your Visit: Vaso-vegal syncope Attending Provider: Brendan Lopez Primary Care Provider: Clovis Esteban Instructions Additional Instructions / Restrictions: You may want to consider a 30 day Holter monitor for further workup Discharge Orders/Prescriptions Prescriptions: Continued allopurinol 300 mg tablet 300 mg PO DAILY RF: 0 lisinopril 20 mg tablet 20 mg PO DAILY RF: 0 levothyroxine 112 mcg tablet 112 mcg PO DAILY RF: 0 simvastatin 40 mg tablet 40 mg PO DAILY RF: 0 aspirin [Adult Low Dose Aspirin] 81 mg tablet,delayed release (DR/EC) 81 mg PO DAILY RF: 0 omega-3 fatty acids [Fish Oil Concentrate] 1,000 mg capsule 1,000 mg PO DAILY RF: 0 multivitamin Tablet 1 tab PO DAILY RF: 0 vitamin B complex [B Complex-Vitamin B12] Tablet 1 tab PO DAILY RF: 0 vitamin E 200 unit capsule 200 unit PO DAILY RF: 0 sildenafil [Viagra] 100 mg Tablet 100 mg PO DAILY PRN (Reason: Erectile Dysfunction) RF: 0 citalopram 20 mg Tablet 20 mg PO DAILY RF: 0 Referrals / Follow Up: Clovis Esteban MD [Primary Care Provider] - Within 2 Weeks Disposition Disposition (needs filled in before D/C Order can be placed): Home, Self Care Charges/Coding Visit Charges OBSV E&M: 95604 Observ/hosp same date L3
== END 2021-12-13 17:14 | disposition home or self-care (01) ==
LOC: ED 23:48 → PCU 12-13 02:19
PROVIDERS: Admitting Provider Family Medicine; Emergency Provider Emergency Medicine; PCP Family Medicine; Visit Provider Internal Medicine
DX: R55 Syncope and collapse (principal); I25.10 Atherosclerotic heart disease of native coronary artery without angina pectoris; I10 Essential (primary) hypertension; M54.2 Cervicalgia; E78.5 Hyperlipidemia, unspecified; M10.9 Gout, unspecified; Z79.899 Other long term (current) drug therapy; Z79.82 Long term (current) use of aspirin; Z79.890 Hormone replacement therapy; F41.9 Anxiety disorder, unspecified; F32.A Depression, unspecified; E03.9 Hypothyroidism, unspecified; M51.36 Other intervertebral disc degeneration, lumbar region
CPT/HCPCS: 36415; 71045; 80048; 84484; 85025; 85379; 93005; 93306; 96360; 96361; 99218; 99285; J7030; A4216; G0378

== ENCOUNTER 2022-04-27 16:07 | Emergency (ER) | payer OTHER, SELFPAY ==
[2022-04-27 16:10] VITALS: BP 123/102; PULSE 71; RESP 18; TEMP 36.4; O2SAT 99; BMI 23.4
--- NOTE | 2022-04-27 17:54 | CT_ITS ---
STUDY: CTA OF THE BRAIN with and without REASON FOR EXAM: Male, 76 years old. blurry vision -- Rule out AV malformation/aneurysm TECHNIQUE: CT angiography was performed with a multi-detector CT scanner. Data acquisition was obtained from the skull base through the vertex with and without intravenous administration of IV 100mL Isovue-370 contrast. MIP images were reconstructed from the axial data set. Post-processing of the angiographic images was performed, with multiplanar reformation and 3D reconstruction. MIPS images were obtained. Analyzed with Viz. Radiation: CTDIvol = [29.96] mGy, DLP = [1226.97] mGy-cm Individualized dose optimization techniques were used for this CT. COMPARISON: 04/05/2013 FINDINGS: Normal bilateral petrous carotid arteries. There is calcified plaque formation of the right cavernous carotid artery, with a mild stenosis (less than 50%). There is calcified plaque formation of the left cavernous carotid artery, with a mild stenosis (less than 50%). There are either bilateral craniectomy changes or david holes. Normal right A1 segments of the anterior cerebral artery. Normal left A1 segments of the anterior cerebral artery. Normal intact anterior communicating artery (ACOM). Normal bilateral A2 segments of the anterior cerebral arteries. Normal right M1 and M2 segments of the middle cerebral arteries, with a normal M1 bifurcation. Normal left M1 and M2 segments of the middle cerebral arteries, with a normal M1 bifurcation. Normal right posterior communicating artery (PCOM). Normal left posterior communicating artery (PCOM). Normal bilateral vertebral arteries. Normal basilar artery with a normal basilar bifurcation. The visualized bilateral superior cerebellar (SCA) arteries are normal. Normal bilateral P1, P2 and visualized P3 segments of the posterior cerebral arteries. There is no demonstrated aneurysm of the [place]. There is no demonstrated abnormality of the visualized brain. CT/CTA Head W/WO Contrast IMPRESSION: There is calcified plaque formation of the right cavernous carotid artery, with a mild stenosis (less than 50%). There is calcified plaque formation of the left cavernous carotid artery, with a mild stenosis (less than 50%). ALL ABOVE CRITERIA BY NASCET. Electronically Signed: Johnson Read MD at 19:41 EDT ,
--- NOTE | 2022-04-27 17:55 | EX.ED.VIS.EY ---
HPI History of Present Illness Chief Complaint: Eye Problem Informant: patient and spouse/S.O. Narrative Narrative: Patient sent here to the ED from [place] eye physician for evaluation. Patient reporting pulsatile feeling left eye with blurry vision secondary to this with his heartbeat going on since mid March. [facility] [place] April [facility], eye exam noting normal pressures, normal cup ratios, but due to orbital pulsation plan was to rule out vascular changes in orbit and cavernous sinus. Apparently from his report there was plans for MRI studies however per patient he stated he wanted to [facility]. Been waiting for the report to get up to [place]. He finally contacted and discussed with them today. They called in reporting concerns for possible cavernous AV malformations and was told to go to nearest emergency department and he states [place] is closer. Therefore he is here. Denies headaches. History of hypertension with blood pressure controlled. He does wear glasses. 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 Prior similar symptoms: No PFSH [facility] Medical History Acute electrocardiogram changes Anxiety Arthritis CAD (coronary artery disease) Cervical spinal stenosis Depression Gout Hemorrhoids Hyperlipidemia Hypertension Hypothyroid Home Medications allopurinol 300 mg tablet 300 mg PO DAILY gout 09/02/20 [History Last Taken Unknown] aspirin 81 mg tablet,delayed release (Adult Low Dose Aspirin) 81 mg PO DAILY heart health 09/02/20 [History Last Taken Unknown] levothyroxine 112 mcg tablet 112 mcg PO DAILY thyroid 09/02/20 [History Last Taken Unknown] lisinopril 20 mg tablet 20 mg PO DAILY blood pressure 09/02/20 [History Last Taken Unknown] multivitamin 1 tab PO DAILY vitamin 09/02/20 [History Last Taken Unknown] omega-3 fatty acids 1,000 mg capsule (Fish Oil Concentrate) 1,000 mg PO DAILY supplement 09/02/20 [History Last Taken Unknown] simvastatin 40 mg tablet 40 mg PO DAILY cholesterol 09/02/20 [History Last Taken Unknown] vitamin B complex (B Complex-Vitamin B12 tablet) 1 tab PO DAILY vitamin 09/02/20 [History Last Taken Unknown] vitamin E 200 unit capsule 200 unit PO DAILY vitamin 09/02/20 [History Last Taken Unknown] citalopram 20 mg tablet 20 mg PO DAILY mental health 12/12/21 [History Last Taken Unknown] sildenafil 100 mg tablet (Viagra) 100 mg PO DAILY PRN Erectile Dysfunction 12/12/21 [History Last Taken Unknown] Allergy/AdvReac Type Severity Reaction Status Date / Time cyclobenzaprine Allergy Low blood Verified 04/27/22 16:10 pressure amoxicillin AdvReac Diarrhea Verified 04/27/22 16:10 Family History Mother Heart disease Hypertension Father Alzheimer disease Surgical History History of back surgery Hx of colonoscopy Hx of subdural hematoma Hx of tonsillectomy Social History Smoking Status: Never smoker second hand exposure: No alcohol intake: current alcohol intake frequency: a few times a month Alcohol type: beer substance use type: does not use caffeine: Yes what type of physical activity do you participate in: walking, bicycling and aerobics frequency: 3-4 times per week ROS ROS ED Constitutional Constitutional ED: Denies chills, fever(s) or sweats Eyes Eyes: Reports blurry vision; Denies change in vision ENT ENT ED: Denies dysphagia or sore throat Cardiovascular Cardiovascular: Denies chest pain, leg edema, palpitations or racing heartbeat Respiratory/Chest Respiratory/Chest: Denies cough, dyspnea or dyspnea on exertion Gastrointestinal Gastrointestinal: Denies abdominal pain, diarrhea, nausea or vomiting Genitourinary Genitourinary ED: Denies dysuria, hematuria or urinary frequency Musculoskeletal Musculoskeletal: Denies back pain, extremity pain or neck pain Integumentary Denies rash or wounds Neurologic Neurologic: Denies headache(s), paresthesias or weakness EXAM Physical Exam Const Vital Signs: 04/27/22 16:10 Temperature 97.5 F L Temperature Source Temporal Pulse Rate 71 Respiratory Rate 18 Blood Pressure 123/102 H Blood Pressure Mean 109 Pulse Ox 99 Oxygen Delivery Method Room Air Positive well nourished and well developed General Appearance ED: well developed and NAD HEENT Reports moist mucous membranes normocephalic and atraumatic Eyes PERRL, EOMs intact bilaterally and conjunctivae normal Eyes Narrative: Symmetric pupils bilaterally. General Eye ED: Yes normal appearance of both eyes Neck no lymphadenopathy and supple General: Negative for tenderness Chest Wall Chest: Negative for tenderness Resp normal respiratory effort and normal air movement Effort and Inspection: symmetric chest movement; Negative for respiratory distress Cardio regular rate, regular rhythm and no murmurs Peripheral Pulses: pulses 2+ throughout GI normal to inspection, nondistended, normoactive bowel sounds and non-tender Palpation: Negative for guarding or rebound tenderness present Back/Spine no CVA tenderness and no thoracic nor lumbar tenderness Extremity normal to inspection General Extremety ED: Negative for edema or tenderness General Extremity: Negative for edema Neuro oriented x3 and no sensory deficits noted Sensorium / Orientation: awake and alert Skin no rashes or lesions noted and no wounds MDM MDM MDM Narrative Medical decision making narrative: Patient vital stable, concerns for AV malformation per report. Discussed with patient available tests with his concerns would be a CT angiogram of his brain for evaluation. Therefore labs were obtained CT angiogram with and without contrast of brain obtained for further evaluation. Blood pressure 123/[address] angiogram results negative for any aneurysms or AV malformations. He has been having symptoms for over 5 weeks now. There is no visual field loss on exam. He is discharged with follow[facility] with [facility]. Images were placed on a disc along with final report per radiology sent with patient. All questions were answered. Lab Data Attestation: I reviewed the patient's lab results. Discharge Plan Triage Chief Complaint: Eye Problem ED Provider: David Almendarez Dx/Rx/DC Orders Clinical Impression: Blurred vision, left eye, Hx of subdural hematoma Instructions: ED Blurred Vision Prescriptions: No Action allopurinol 300 mg tablet 300 mg PO DAILY lisinopril 20 mg tablet 20 mg PO DAILY levothyroxine 112 mcg tablet 112 mcg PO DAILY simvastatin 40 mg tablet 40 mg PO DAILY aspirin [Adult Low Dose Aspirin] 81 mg tablet,delayed release (DR/EC) 81 mg PO DAILY omega-3 fatty acids [Fish Oil Concentrate] 1,000 mg capsule 1,000 mg PO DAILY multivitamin Tablet 1 tab PO DAILY vitamin B complex [B Complex-Vitamin B12] Tablet 1 tab PO DAILY vitamin E 200 unit capsule 200 unit PO DAILY sildenafil [Viagra] 100 mg Tablet 100 mg PO DAILY PRN (Reason: Erectile Dysfunction) citalopram 20 mg Tablet 20 mg PO DAILY [facility] [Primary Care Provider] - 3-5 Days Activity Restrictions/Additional Instructions: CT angiogram of your head no aneurysm or malformations. Follow-up with your doctor for reevaluation. Disposition Disposition: Home, Self Care Discharge Date/Time: 04/27/22 21:58
[2022-04-27 18:18] LABS: Absolute Lymphocyte Count 1.65 X10^3/uL (0.83-4.51); Absolute Neutrophil Count 3.1 X10^3/uL (2.0-7.7); Basophil# 0.04 X10^3/uL; Basophil% 0.7 % (0-1); Eosinophil# 0.18 X10^3/uL; Eosinophils% 3.1 % (0-5); Hematocrit 45.1 % (40-54); Hemoglobin 15.1 g/dL (13.0-16.5); Lymphocyte # 1.65 X10^3/ul (0.83-4.51); Lymphocyte % 28.8 % (19-41); Mean Corp Hgb Conc 33.5 g/dL (32-36); Mean Corpuscular Hgb 33.6 pg (27.0-32.0); Mean Corpuscular Volume 100.2 fL (80-94); Mean Platelet Vol. 9.9 fl (6.2-12.0); Monocyte# 0.71 X10^3/uL; Monocyte% 12.4 % (0-10); NRBC Flagged by Analyzer 0 % (0-5); Neutrophil # 3.13 X10^3/uL (2.7-7.7); Neutrophil % 54.8 % (47-70); Platelet Count 272 K/mm3 (150-450); RBC Distribution Width SD 44.9 fl (35.1-43.9); White Blood Count 5.7 K/mm3 (4.4-11.0)
[2022-04-27 18:33] LABS: Anion Gap 4 (5-15); BUN 17 mg/dL (7-18); BUN/Creat Ratio 18.1 RATIO (10-20); Calcium,Total 9.5 mg/dL (8.5-10.1); Chloride 104 mmol/L (98-107); Creatinine, Serum 0.94 mg/dL (0.70-1.30); EST Glomerular Filtration Rate 83 mL/min (>60); Est Glom Filt Rate - Afr Amer 100 mL/min (>60); Estimated Creatinine Clearance 76.74 ml/min; Glucose 93 mg/dL (74-106); Potassium 4.2 mmol/L (3.5-5.1); Sodium Level 139 mmol/L (136-145)
[2022-04-27 19:22] VITALS: BP 150/82; PULSE 53; RESP 16; O2SAT 99
== END 2022-04-27 21:58 | disposition home or self-care (01) ==
PROVIDERS: Emergency Provider Emergency Medicine; Visit Provider Emergency Medicine
DX: H53.8 Other visual disturbances (principal); F41.9 Anxiety disorder, unspecified; M19.90 Unspecified osteoarthritis, unspecified site; I25.10 Atherosclerotic heart disease of native coronary artery without angina pectoris; F32.A Depression, unspecified; M10.9 Gout, unspecified; E78.5 Hyperlipidemia, unspecified; E03.9 Hypothyroidism, unspecified; I10 Essential (primary) hypertension; M48.02 Spinal stenosis, cervical region; Z79.82 Long term (current) use of aspirin; Z79.899 Other long term (current) drug therapy
CPT/HCPCS: 70496; 80048; 85025; 99283; Q9967; A4216